=== PATIENT | male | born 1985 | race Caucasian/White ===

== ENCOUNTER → 2022-06-16 | Day surgery (SDC) | payer OTHER ==
--- NOTE | 2022-06-15 12:22 | P.HPOR ---
History of Present Illness H&P Date: 06/15/22 Chief Complaint: Right DeQuervains tenosynovitis Subjective: This is a 36 year old male that presents today for follow up evaluation regarding right DeQuervains tenosynovitis. He responded well to his right sided injection initially at his last follow up visit in October. He states his symptoms have returned about 1 month prior and has continued pain along the radial aspect of the right wrist. Physical Examination: RUE: AIN/PIN/Radial/Ulnar/Median motor intact. Radial/Ulnar/Median SILT. 2+/4 Radial/Ulnar pulses palpated. 5/5 APB, 5/5 FDI. Positive Finkelsteins, negative CMC grind, negative Durkan's compression. Impression: 1.) Right DeQuervains Tenosynovitis Plan: Diagnosis and treatment options were discussed with the patient. We discussed possible surgical intervention since he has had 2 steroid injections with only temporary relief of his symptoms and he would like to go forward with right first dorsal compartment release. Risks and benefits of surgery including bleeding, infection, damage to surrounding tissue, need for further surgery, residual numbness were discussed and the patient wished to go forward with surgery. I anticipate 2 weeks off of work if needed post operatively. -Marcelo Morales DO Orthopedic Hand/Upper Extremity Surgeon Past Medical History Past Medical History: Diabetes Mellitus, GERD/Reflux, Hypertension Additional Past Medical History / Comment(s): chronic back pain, takes losartan for kidnies due to metformin use. occasional eczema. enviromental allergies. + covid 04/2022 History of Any Multi-Drug Resistant Organisms: None Reported Additional Past Surgical History / Comment(s): vasectomy - local RFL on back. tooth extraction Past Anesthesia/Blood Transfusion Reactions: No Reported Reaction Additional Past Anesthesia/Blood Transfusion Reaction / Comment(s): pt states his body is resistant to anesthesia and pain medications. Smoking Status: Former smoker - Past Family History Father Family Medical History: COPD Mother Family Medical History: Cancer Additional Family Medical History / Comment(s): skin cancer Sister(s) Family Medical History: Cancer Additional Family Medical History / Comment(s): thyroid Medications and Allergies Home Medications Medication Instructions Recorded Confirmed Type Cholecalciferol [Vitamin D3] 1,000 unit PO HS 09/01/06/14/22 History methocarbamoL [Robaxin] 500 mg PO HS PRN 04/05/16 01/16/23 History Losartan Potassium [Cozaar] 25 mg PO HS 06/14/22 06/14/22 History Omeprazole 20 mg PO HS 06/14/22 06/14/22 History Unk Multi Vitamin 1 tab PO HS 06/14/22 06/14/22 History buPROPion HCL [buPROPion HCL SR] 200 mg PO HS 06/14/22 06/14/22 History metFORMIN HCL ER [Glucophage XR] 500 mg PO HS 06/14/22 06/14/22 History traMADol HCL 50 mg PO Q8H 06/14/22 06/14/22 History Allergies Allergy/AdvReac Type Severity Reaction Status Date / Time levofloxacin [From Levaquin] Allergy tingling Verified 06/14/22 09:02 of lips venom-honey bee Allergy Swelling Verified 06/14/22 09:02 [bee venom (honey bee)] Physical Examination Osteopathic Statement: *. No significant issues noted on an osteopathic structural exam other than those noted in the History and Physical/Consult.
[~2022-06-16] MED LIST: BUPIVACAINE (PF) 0.5% 30 ML VIAL SQ ONE; DEXAMETHASONE SOD PHOSPHATE 4 MG/ML 1 ML VIAL IV ONE; HYDROmorphone 0.5 MG/0.5 ML SYRINGE IVP PRN; LACTATED RINGERS 1,000 ML IV SCH; LIDOCAINE 1% (10MG/ML) FOR IV START INTRADERMA PRN; LIDOCAINE 1% INJ 10MG/ML (10 ML MDV) SQ ONE; MIDAZOLAM 2 MG/2 ML VIAL ONE; ONDANSETRON 4 MG/2 ML VIAL ONE; PROPOFOL 10 MG/ML 20 ML VIAL IV ONE; Pre Op ABX Message 1 EACH MISC MISCELLANE ONE; fentaNYL (PF) 50 MCG/ML 2 ML AMP ONE
[2022-06-16 12:03] VITALS: TEMP 97.2
[2022-06-16 12:16] LABS: Glucose,Whole Blood 116 mg/dL (70-110)
[2022-06-16 12:56] VITALS: RESP 16
[2022-06-16 13:08] VITALS: BP 107/72; PULSE 88
--- NOTE | 2022-06-16 17:22 | P.OP ---
Date of Procedure: 06/16/22 Preoperative Diagnosis: Right DeQuervains tenosynovitis Postoperative Diagnosis: Right DeQuervains tenosynovitis Procedure(s) Performed: 1.) Right first dorsal compartment release Anesthesia: MAC Surgeon: Marcelo Morales Software Developer Consultant #1: Alfie Guzman Estimated Blood Loss (ml): 0 Pathology: none sent Condition: stable Disposition: PACU Description of Procedure: This is a 37 year old male who presents today for a right first dorsal compartment release after having failed conservative treatment. Risks and benefits of surgery were discussed with the patient including bleeding, damage to surrounding tissue, infection, need for further surgery as well as risks of anesthesia including pulmonary embolism and even and the patient wished to proceed with surgical intervention. The patients was seen in the pre-operative area by myself. Consent and H&P were completed and updated. The correct extremity was marked in the pre-operative area by myself and all other questions were answered. Operative Narrative: The patient was brought to the operating room by the department of anesthesia. They remained on the portable stretcher and a rolling hand table was brought to the side of the operative extremity. The patient was then drifted off to sleep by the department of anesthesia. A nonsterile tourniquet was then applied to the operative extremity and the right upper extremity was then prepped and draped in normal sterile fashion. Pre-operative time out was performed indicating the correct patient, procedure and laterality. All in the room agreed. MAC anesthesia was utilized and a 50:50 mixture of 1% Lidocaine and 0.5% bupivacaine was injected into the subcutaneous tissues of the radial wrist skin, 7ccs total. Pre-operative antibiotics were given prior to skin incision. The operative extremity was the exsanguinated with an esmarch bandage and the tourniquet was inflated to 250mmHg. 15 blade scalpel was used to make a horizontal skin incision centered over the first dorsal compartment of the right wrist. Blunt dissection was taken down to the proximal edge of the first dorsal compartment while taking care to identify and protect branches of the superficial radial sensory nerve. The first dorsal compartment was released in its entirety from proximal to distal. APL and EPB tendons were identified and no subsheath or additional individual sheath was identified. Skin closure was performed with 4-0 Monocryl suture, Mastisol and steri strips. Sterile soft dressing was applied consisting of 4x4's cast padding and an ruben wrap. The patient was then woken by the department of anesthesia and transferred to PACU in stable condition. Alfie LYN was present for the case to assist in major portions of the case. Marcelo Morales D.O. Orthopedic Hand/Upper Extremity Surgeon
== END | disposition home or self-care (01) ==
LOC: OR 11:45
PROVIDERS: ATTEND Orthopaedic Surgery Hand Surgery
DX: M65.4 Radial styloid tenosynovitis [de Quervain] (principal); E11.9 Type 2 diabetes mellitus without complications; K21.9 Gastro-esophageal reflux disease without esophagitis; I10 Essential (primary) hypertension; G89.29 Other chronic pain; Z86.16 Personal history of COVID-19; Z87.891 Personal history of nicotine dependence; Z80.8 Family history of malignant neoplasm of other organs or systems; Z82.5 Family history of asthma and other chronic lower respiratory diseases; Z83.49 Family history of other endocrine, nutritional and metabolic diseases; Z79.899 Other long term (current) drug therapy; Z79.84 Long term (current) use of oral hypoglycemic drugs; Z79.1 Long term (current) use of non-steroidal anti-inflammatories (NSAID); Z88.1 Allergy status to other antibiotic agents; Z91.030 Bee allergy status
CPT/HCPCS: 25000; J2250; J1100; J2405; J3010; J2001; J2704

== ENCOUNTER 2022-09-15 12:33 | Day surgery (SDC) | payer OTHER ==
--- NOTE | 2022-09-13 13:23 | P.HPOR ---
History of Present Illness H&P Date: 09/13/22 Chief Complaint: Left DeQuervains tenosynovitis Subjective: This is a 37 year old male that presents today for a post-operative visit after undergoing right first dorsal compartment release on 06/16/22. He is doing well Rekha states his wrist feels back to normal. He is complaining of left first dorsal compartment tendinitis as well and states the left side feels much worse now that his right side is back to normal. He has had multiple injections on t he left side, but the most recent being around January 2022. Physical Examination: RUE: AIN/PIN/Radial/Ulnar/Median motor intact. Radial/Ulnar/Median SILT. 2+/4 Ra dial/Ulnar pulses palpated. Incision well approximated. Negative Finkelsteins. LUE: AIN/PIN/Radial/Ulnar/Median motor intact. Radial/Ulnar/Median SILT. 2+/4 Radial/Ulnar pulses palpated. Positive Finkelsteins Impression: 1.) S/P Right first dorsal compartment release 2.) Left DeQuervains tenosynovitis Plan: Diagnosis and treatment options were discussed with the patient. He is doing well from his right-sided surgery and wishes to pursue left-sided first dorsal compartment release for his left DeQuervains tenosynovitis. Risks and benefits of surgery including bleeding, infection, damage to surrounding tissue, need for further surgery, residual numbness were discussed and the patient wished to go forward with surgery. The patient is agreeable with this plan. -Marcelo Morales DO Orthopedic Hand/Upper Extremity Surgeon Past Medical History Past Medical History: Diabetes Mellitus, GERD/Reflux, Hypertension Additional Past Medical History / Comment(s): chronic back pain, takes losartan for kidneys due to metformin use. occasional eczema. enviromental allergies. + covid 04/2022 , needs repeat sleep study. DDD and bulging disc History of Any Multi-Drug Resistant Organisms: None Reported Additional Past Surgical History / Comment(s): vasectomy - local RFL on back deaden nerves. tooth extraction, rt thumb release Past Anesthesia/Blood Transfusion Reactions: No Reported Reaction Additional Past Anesthesia/Blood Transfusion Reaction / Comment(s): pt states his body is resistant to anesthesia and pain medications. Smoking Status: Former smoker - Past Family History Father Family Medical History: COPD Mother Family Medical History: Cancer Additional Family Medical History / Comment(s): skin cancer Sister(s) Family Medical History: Cancer Additional Family Medical History / Comment(s): thyroid Medications and Allergies Home Medications Medication Instructions Recorded Confirmed Type Cholecalciferol [Vitamin D3] 2,000 unit PO HS 09/02/15 09/09/22 History methocarbamoL [Robaxin] 500 mg PO HS PRN 09/02/15 09/09/22 History Losartan Potassium [Cozaar] 25 mg PO HS 06/14/22 09/09/22 History Omeprazole 20 mg PO HS 06/14/22 09/09/22 History Unk Multi Vitamin 1 tab PO HS 06/14/22 09/09/22 History buPROPion HCL [buPROPion HCL SR] 200 mg PO HS 06/14/22 09/09/22 History metFORMIN HCL ER [Glucophage XR] 1,000 mg PO HS 06/14/22 09/09/22 History traMADol HCL 50 mg PO Q8H PRN 06/14/22 09/09/22 History Allergies Allergy/AdvReac Type Severity Reaction Status Date / Time levofloxacin [From Levaquin] Allergy tingling Verified 09/09/22 12:01 of lips venom-honey bee Allergy Swelling Verified 09/09/22 12:01 [bee venom (honey bee)] Physical Examination Osteopathic Statement: *. No significant issues noted on an osteopathic structural exam other than those noted in the History and Physical/Consult.
[~2022-09-15 12:33] MED LIST changes: -BUPIVACAINE (PF) 0.5% 30 ML VIAL SQ ONE; -LIDOCAINE 1% INJ 10MG/ML (10 ML MDV) SQ ONE; -MIDAZOLAM 2 MG/2 ML VIAL ONE; +ONDANSETRON 4 MG/2 ML VIAL IVP ONE; -ONDANSETRON 4 MG/2 ML VIAL ONE; -PROPOFOL 10 MG/ML 20 ML VIAL IV ONE; -fentaNYL (PF) 50 MCG/ML 2 ML AMP ONE
[2022-09-15 13:00] VITALS: TEMP 97.1
[2022-09-15 13:06] LABS: Glucose,Whole Blood 98 mg/dL (70-110)
[2022-09-15] MEDS ORDERED: LIDOCAINE 2% INJ 20 MG/ML (2 ML VIAL) ONE (13:50)
[2022-09-15] MEDS ORDERED: fentaNYL (PF) 50 MCG/ML 2 ML AMP ONE (13:50)
[2022-09-15] MEDS ORDERED: MIDAZOLAM 2 MG/2 ML VIAL ONE (13:50)
[2022-09-15] MEDS ORDERED: PROPOFOL 10 MG/ML 20 ML VIAL IV ONE (13:50)
[2022-09-15] MEDS ORDERED: LIDOCAINE 1% INJ 10MG/ML (20 ML MDV) SQ ONE ×2 (13:52→14:02)
[2022-09-15] MEDS ORDERED: BUPIVACAINE (PF) 0.5% 30 ML VIAL SQ ONE ×2 (13:52→14:02)
[2022-09-15 15:48] VITALS: BP 115/82; PULSE 83; RESP 14
--- NOTE | 2022-09-15 17:04 | P.OP ---
Date of Procedure: 09/15/22 Preoperative Diagnosis: Left DeQuervains tenosynovitis Postoperative Diagnosis: Left DeQuervains tenosynovitis Procedure(s) Performed: Left first dorsal compartment release Anesthesia: MAC Surgeon: Marcelo Morales Knife Edger #1: Alfie Guzman Estimated Blood Loss (ml): 0 Pathology: none sent Condition: stable Disposition: PACU Description of Procedure: This is a 38 year old male who presents today for a left first dorsal compartment release after having failed conservative treatment. Risks and benefits of surgery were discussed with the patient including bleeding, damage to surrounding tissue, infection, need for further surgery as well as risks of anesthesia including pulmonary embolism and even and the patient wished to proceed with surgical intervention. The patients was seen in the pre-operative area by myself. Consent and H&P were completed and updated. The correct extremity was marked in the pre-operative area by myself and all other questions were answered. Operative Narrative: The patient was brought to the operating room by the department of anesthesia. They remained on the portable stretcher and a rolling hand table was brought to the side of the operative extremity. The patient was then drifted off to sleep by the department of anesthesia. A nonsterile tourniquet was then applied to the operative extremity and the left upper extremity was then prepped and draped in normal sterile fashion. Pre-operative time out was performed indicating the correct patient, procedure and laterality. All in the room agreed. MAC anesthesia was utilized and a 50:50 mixture of 1% Lidocaine and 0.5% bupivacaine was injected into the subcutaneous tissues of the radial wrist skin, 8ccs total. Pre-operative antibiotics were given prior to skin incision. The operative extremity was the exsanguinated with an esmarch bandage and the tourniquet was inflated to 250mmHg. 15 blade scalpel was used to make a horizontal skin incision centered over the first dorsal compartment of the left wrist. Blunt dissection was taken down to the proximal edge of the first dorsal compartment while taking care to identify and protect branches of the superficial radial sensory nerve. The first dorsal compartment was released in its entirety from proximal to distal. APL and EPB tendons were identified and no seperate compartment was noted for either tendon. Skin closure was performed with 4-0 Monocryl suture, Mastisol and steri strips. Sterile soft dressing was applied consisting of 4x4's cast padding and an ruben wrap. The patient was then woken by the department of anesthesia and transferred to PACU in stable condition. Marcelo Morales D.O. Orthopedic Hand/Upper Extremity Surgeon
== END 2022-09-15 15:52 | disposition home or self-care (01) ==
LOC: OR 12:33
PROVIDERS: ATTEND Orthopaedic Surgery Hand Surgery
DX: M65.4 Radial styloid tenosynovitis [de Quervain] (principal); I10 Essential (primary) hypertension; E11.9 Type 2 diabetes mellitus without complications; K21.9 Gastro-esophageal reflux disease without esophagitis; G89.29 Other chronic pain; E66.01 Morbid (severe) obesity due to excess calories; Z68.41 Body mass index [BMI] 40.0-44.9, adult; Z86.16 Personal history of COVID-19; Z87.39 Personal history of other diseases of the musculoskeletal system and connective tissue; Z79.84 Long term (current) use of oral hypoglycemic drugs; Z87.891 Personal history of nicotine dependence; Z80.8 Family history of malignant neoplasm of other organs or systems; Z83.6 Family history of other diseases of the respiratory system; Z79.899 Other long term (current) drug therapy; Z88.1 Allergy status to other antibiotic agents; Z91.030 Bee allergy status
CPT/HCPCS: 25000; J2250; J1100; J2405; J2001 ×2; J3010; J2704; J1170

== ENCOUNTER 2024-12-14 12:21 | Emergency (ER) | payer OTHER ==
[2024-12-14 12:29] VITALS: RESP 18; TEMP 97.8
--- NOTE | 2024-12-14 12:42 | ED ---
General Adult HPI - General Chief complaint: Abdominal Pain Stated complaint: Right flank pain Time Seen by Provider: 12/14/24 12:30 Source: patient, RN notes reviewed, old records reviewed Mode of arrival: ambulatory Limitations: no limitations - History of Present Illness Initial comments: This is a 39-year-old male who presents to the emergency department complaining of right flank pain. Patient states he started Boutt 2 days ago. Patient states he is very light in nature but about 2 hours ago became very severe and it comes and goes in waves. Patient denies any dysuria hematuria urinary frequency. Patient thinks it might be related to muscles. Patient denies any nausea or vomiting or diarrhea. Patient denies any previous abdominal surg eries. - Related Data Home Medications Medication Instructions Recorded Confirmed Cholecalciferol [Vitamin D3] 2,000 unit PO HS 09/02/15 09/15/22 methocarbamoL [Robaxin] 500 mg PO HS PRN 09/02/15 09/15/22 Losartan Potassium [Cozaar] 25 mg PO HS 06/14/22 09/15/22 Omeprazole 20 mg PO HS 06/14/22 09/15/22 Unk Multi Vitamin 1 tab PO HS 06/14/22 09/09/22 buPROPion HCL [buPROPion HCL SR] 200 mg PO HS 06/14/22 09/15/22 metFORMIN HCL ER [Glucophage XR] 1,000 mg PO HS 06/14/22 09/15/22 traMADol HCL 50 mg PO Q8H PRN 06/14/22 09/15/22 Previous Rx's Medication Instructions Recorded HYDROcodone/APAP 5-325MG [[place] 1 tab PO Q4HR PRN 3 Days #18 tab 09/15/22 5-325] Ketorolac [Toradol] 10 mg PO Q8HR #15 tab 12/14/24 Allergies Allergy/AdvReac Type Severity Reaction Status Date / Time levofloxacin [From Levaquin] Allergy tingling Verified 12/14/24 12:29 of lips venom-honey bee Allergy Swelling Verified 12/14/24 12:29 [bee venom (honey bee)] Review of Systems ROS Statement: Those systems with pertinent positive or pertinent negative responses have been documented in the HPI. ROS Other: All systems not noted in ROS Statement are negative. Past Medical History Past Medical History: Diabetes Mellitus, GERD/Reflux, Hypertension Additional Past Medical History / Comment(s): chronic back pain, takes losartan for kidneys due to metformin use. occasional eczema. enviromental allergies. + covid 04/2022 , needs repeat sleep study. DDD and bulging disc History of Any Multi-Drug Resistant Organisms: None Reported Additional Past Surgical History / Comment(s): vasectomy - local RFL on back deaden nerves. tooth extraction, rt thumb release Past Anesthesia/Blood Transfusion Reactions: No Reported Reaction Additional Past Anesthesia/Blood Transfusion Reaction / Comment(s): pt states his body is resistant to anesthesia and pain medications. Past Psychological History: Anxiety Smoking Status: Former smoker - Past Family History Father Family Medical History: COPD Mother Family Medical History: Cancer Additional Family Medical History / Comment(s): skin cancer Sister(s) Family Medical History: Cancer Additional Family Medical History / Comment(s): thyroid General Exam - General Exam Comments Initial Comments: GENERAL: Patient is well-developed and well-nourished. Patient is nontoxic and well- hydrated and is in mild distress. ENT: Neck is soft and supple. No significant lymphadenopathy is noted. Oropharynx is clear. Moist mucous membranes. Neck has full range of motion without eliciting any pain. EYES: The sclera were anicteric and conjunctiva were pink and moist. Extraocular movements were intact and pupils were equal round and reactive to light. Eyelids were unremarkable. PULMONARY: Unlabored respirations. Good breath sounds bilaterally. No audible rales rhonchi or wheezing was noted. CARDIOVASCULAR: There is a regular rate and rhythm without any murmurs gallops or rubs. ABDOMEN: Soft and nontender with normal bowel sounds. Patient has no reproducible abdominal pain SKIN: Skin is clear with no lesions or rashes and otherwise unremarkable. NEUROLOGIC: Patient is alert and oriented x3. Cranial nerves II through XII are grossly intact. Motor and sensory are also intact. Normal speech, volume and content. Symmetrical smile. MUSCULOSKELETAL: Normal extremities with adequate strength and full range of motion. LYMPHATICS: No significant lymphadenopathy is noted PSYCHIATRIC: Normal psychiatric evaluation. Limitations: no limitations Course Vital Signs 12/14/24 12:26 Temperature 97.8 F Pulse Rate 97 Respiratory 18 Rate Blood Pressure 125/88 O2 Sat by Pulse 97 Oximetry Medical Decision Making - Medical Decision Making Was pt. sent in by a medical professional or institution (, PA, [facility], urgent care, hospital, or halfway...) When possible be specific @ -No Did you speak to anyone other than the patient for history (EMS, parent, family, police, friend...)? What history was obtained from this source @ -No Did you review nursing and triage notes (agree or disagree)? Why? @ -I reviewed and agree with nursing and triage notes Were old charts reviewed (outside hosp., previous admission, EMS record, old EKG, old radiological studies, urgent care reports/EKG's, halfway records)? Report findings @ -No old charts were reviewed Differential Diagnosis? @ -MDM abdominal pain mental EKG interpreted by me (3pts min.). @ -As above X-rays interpreted by me (1pt min.). @ -None done CT interpreted by me (1pt min.). @ -CT of the abdomen pelvis showed no acute abnormality U/S interpreted by me (1pt. min.). @ -None done What testing was considered but not performed or refused? (CT, X-rays, U/S, labs)? Why? @ -None What meds were considered but not given or refused? Why? @ -None Did you discuss the management of the patient with other professionals (professionals i.e. RIKI Yeboah, [facility], lab, RT, psych nurse, social director, manager aerospace, teacher, media liaison officer, protective services case worker)? Give summary @ -No Was smoking cessation discussed for >3mins.? @ -No Was critical care preformed (if so, how long)? @ -No Were there social determinants of health that impacted care today? How? (Homelessness, low income, unemployed, alcoholism, drug addiction, transportation, low edu. Level, literacy, decrease access to med. care, long term, rehab)? @ -No Was there de-escalation of care discussed even if they declined (Discuss DNR or withdrawal of care, Hospice)? DNR status @ -No What co-morbidities impacted this encounter? (DM, HTN, Smoking, COPD, CAD, Cancer, CVA, ARF, Chemo, Hep., AIDS, mental health diagnosis, sleep apnea, morbid obesity)? @ -None Was patient admitted / discharged? Hospital course, mention meds given and route, prescriptions, significant lab abnormalities, going to OR and other pertinent info. @ -Patient received Toradol in the emergency department help with his pain. Patient had pain with engaging of abdominal muscles on the right and it seemed like he must have a muscle strain at this time. Patient will be sent home with some Toradol. Undiagnosed new problem with uncertain prognosis? @ -No Drug Therapy requiring intensive monitoring for toxicity (Heparin, Nitro, Insulin, Cardizem)? @ -No Were any procedures done? @ -No Diagnosis/symptom? @ -Abdominal muscle strain Acute, or Chronic, or Acute on Chronic? @ -Acute Uncomplicated (without systemic symptoms) or Complicated (systemic symptoms)? @ -Complicated Side effects of treatment? @ -No Exacerbation, Progression, or Severe Exacerbation? @ -No Poses a threat to life or bodily function? How? (Chest pain, [place], [place], pneumonia, PE, COPD, DKA, ARF, appy, cholecystitis, CVA, Diverticulitis, Homicidal, Suicidal, threat to staff... and all critical care pts) @ -No - Lab Data Result diagrams: 12/14/24 12:54 12/14/24 12:54 Lab Results 12/14/24 12/14/24 12/14/24 Range/Units 12:54 12:54 13:58 WBC 9.39 (4.50-10.00) 10*3/uL RBC 5.13 (4.40-5.60) 10*6/uL Hgb 15.2 (13.0-17.0) g/dL Hct 43.8 (39.6-50.0) % MCV 85.4 (80.0-97.0) fL MCH 29.6 (27.0-32.0) pg MCHC 34.7 (32.0-37.0) g/dL Plt Count 285 (140-440) 10*3/uL MPV 10.6 (9.5-12.2) fL Immature Gran % (Auto) 0.5 % Neutrophils % 66.2 % Lymphocytes % 25.5 % Monocytes % 5.8 % Eosinophils % 0.9 % Basophils % 1.1 % Immature Gran # 0.05 H (0.00-0.04) 10*3/uL Neutrophils # 6.23 (1.80-7.70) 10*3/uL Lymphocytes # 2.39 (0.90-5.00) 10*3/uL Monocytes # 0.54 (0.20-1.00) 10*3/uL Eosinophils # 0.08 (0.04-0.35) 10*3/uL Basophils # 0.10 (0.00-0.10) 10*3/uL Sodium 138 (137-145) mmol/L Potassium 4.4 (3.5-5.1) mmol/L Chloride 103 (98-107) mmol/L Carbon Dioxide 25 (22-30) mmol/L Anion Gap 10 mmol/L BUN 9 (9-20) mg/dL Creatinine 0.65 L (0.66-1.25) mg/dL Est GFR (CKD-EPI)AfAm >90 (>60 ml/min/1.73 sqM) Est GFR (CKD-EPI)NonAf >90 (>60 ml/min/1.73 sqM) Glucose 96 (74-99) mg/dL Calcium 9.4 (8.4-10.2) mg/dL Total Bilirubin 0.9 (0.2-1.3) mg/dL AST 33 (17-59) U/L ALT 43 (4-49) U/L Alkaline Phosphatase 77 (38-126) U/L Total Protein 7.0 (6.3-8.2) g/dL Albumin 4.5 (3.5-5.0) g/dL Amylase 43 (30-110) U/L Lipase 73 (23-300) U/L Urine Color Colorless Urine Appearance Clear (Clear) Urine pH 5.0 (5.0-8.0) Ur Specific [place] 1.007 (1.001-1.035) Urine Protein Negative (Negative) Urine Glucose (UA) Negative (Negative) Urine Ketones Negative (Negative) Urine Blood Negative (Negative) Urine Nitrite Negative (Negative) Urine Bilirubin Negative (Negative) Urine Urobilinogen <2.0 (<2.0) mg/dL Ur Leukocyte Esterase Negative (Negative) Disposition Clinical Impression: Abdominal muscle strain Disposition: HOME SELF-CARE Condition: Good Instructions (If sedation given, give patient instructions): Muscle Strain (ED) Prescriptions: Ketorolac [Toradol] 10 mg PO Q8HR #15 tab Is patient prescribed a controlled substance at d/c from ED?: No Referrals: Jed Gonzalez [Primary Care Provider] - 1-2 days Time of Disposition: 14:51
[2024-12-14] MEDS: KETOROLAC 15 MG/ML 1 ML VIAL IVP STA (12:54)
[2024-12-14] MEDS: LACTATED RINGERS 1,000 ML IV ONE (12:54)
[2024-12-14 13:08] LABS: Basophils # (A) 0.10 10*3/uL (0.00-0.10); Basophils % (A) 1.1 %; Eosinophils # (A) 0.08 10*3/uL (0.04-0.35); Eosinophils % (A) 0.9 %; HCT 43.8 % (39.6-50.0); HGB 15.2 g/dL (13.0-17.0); Lymphocytes # (A) 2.39 10*3/uL (0.90-5.00); Lymphocytes % (A) 25.5 %; MCH 29.6 pg (27.0-32.0); MCHC 34.7 g/dL (32.0-37.0); MCV 85.4 fL (80.0-97.0); Monocytes # (A) 0.54 10*3/uL (0.20-1.00); Monocytes % (A) 5.8 %; Neutrophils # (A) 6.23 10*3/uL (1.80-7.70); Neutrophils % (A) 66.2 %; Platelet Count 285 10*3/uL (140-440); RBC 5.13 10*6/uL (4.40-5.60); RDW 11.9 % (11.5-14.5); WBC 9.39 10*3/uL (4.50-10.00)
[2024-12-14 13:19] LABS: ALT 43 U/L (4-49); AST 33 U/L (17-59); African American GFR (CKD) >90 (>60 ml/min/1.73 sqM); Albumin 4.5 g/dL (3.5-5.0); Alkaline Phosphatase 77 U/L (38-126); Amylase 43 U/L (30-110); Anion Gap 10 mmol/L; Blood Urea Nitrogen 9 mg/dL (9-20); Calcium 9.4 mg/dL (8.4-10.2); Carbon Dioxide 25 mmol/L (22-30); Chloride 103 mmol/L (98-107); Glucose 96 mg/dL (74-99); Lipase 73 U/L (23-300); Non-African American GFR(CKD) >90 (>60 ml/min/1.73 sqM); Potassium 4.4 mmol/L (3.5-5.1); Sodium 138 mmol/L (137-145); Total Protein 7.0 g/dL (6.3-8.2)
--- NOTE | 2024-12-14 13:41 | CT ---
EXAMINATION TYPE: CT abdomen pelvis wo con CT DLP: 1525.3 mGycm, Automated exposure control for dose reduction was used. DATE OF EXAM: 12/14/2024 1:26 PM COMPARISON: None CLINICAL INDICATION:Male, 39 years old with history of abdominal pain; Abdominal pain; right flank pa in TECHNIQUE: Standard CT of the abdomen and pelvis without IV or oral contrast. Lack of IV or oral co ntrast limits evaluation of solid and hollow organ viscera. Coronal and sagittal reformats were perfo rmed. FINDINGS: LOWER CHEST: Unremarkable ABDOMEN LIVER: Diffusely hypoattenuating parenchyma. GALLBLADDER AND BILE DUCTS: Unremarkable noncontrast appearance PANCREAS: Unremarkable noncontrast appearance SPLEEN: Unremarkable noncontrast appearance ADRENAL GLANDS: Unremarkable noncontrast appearance of the right adrenal gland. Left adrenal gland 1. 9 cm nodule with a Hounsfield unit of 9 consistent with a lipid rich benign adrenal adenoma. KIDNEYS AND URETERS: No evidence of hydronephrosis or renal calculus. The ureters are unremarkable. PELVIS BLADDER: Unremarkable noncontrast appearance REPRODUCTIVE: Unremarkable noncontrast appearance ABDOMEN & PELVIS STOMACH AND BOWEL: Stomach and duodenum are unremarkable. No focal bowel wall thickening or surroundi ng inflammatory changes. The appendix is within normal limits. No evidence of bowel obstruction. PERITONEUM: No evidence of pneumoperitoneum or free fluid. VASCULATURE: No evidence of aortic aneurysm. MUSCULOSKELETAL: No acute osseous abnormalities. Degenerative changes of the bilateral SI joints with anterior bridging. LYMPH NODES: No gross evidence for lymphadenopathy. SOFT TISSUE/ABDOMINAL WALL: Unremarkable IMPRESSION: 1. No CT evidence for acute abdominal/pelvic process within limitations of a noncontrast exam. 2. Hepatic steatosis. 3. Benign left adrenal gland lipid rich adenoma. [facility], , 12/14/2024 1:39 PM
[2024-12-14 14:22] LABS: Bilirubin,Urine Negative (Negative); Blood,Urine Negative (Negative); Color,Urine Colorless; Glucose,Urine (UA) Negative (Negative); Ketones,Urine Negative (Negative); Leukocyte Esterase,Urine Negative (Negative); Nitrite,Urine Negative (Negative); PH, Urine 5.0 (5.0-8.0); Protein,Urine Negative (Negative); Specific Gravity,Urine 1.007 (1.001-1.035); Urobilinogen,Urine <2.0 mg/dL (<2.0)
[2024-12-14 15:04] VITALS: BP 167/86; PULSE 74
== END 2024-12-14 15:00 | disposition home or self-care (01) ==
LOC: EC 12:21
DX: S39.011A Strain of muscle, fascia and tendon of abdomen, initial encounter (principal); Z87.891 Personal history of nicotine dependence; Z88.1 Allergy status to other antibiotic agents; Z91.030 Bee allergy status; X58.XXXA Exposure to other specified factors, initial encounter
CPT/HCPCS: 36415; 80053; 82150; 83690; 85025; 81003; 74176; 99284; 96374; 96361; J1885